=== PATIENT | female | born 1980 | race Caucasian/White ===

== ENCOUNTER → 2019-03-16 | Outpatient (CLI) | payer OTHER ==
[~2019-03-16] MED LIST: HYDACE5 PO; PROM25 PO
[2019-03-22 14:08] LABS: HPV 16 Negative (Negative); HPV 18 Negative (Negative); HPV OTHER HR TYPES Negative (Negative)
== END | disposition home or self-care (01) ==
LOC: LAB SHORT 15:56 → LAB 15:56
PROVIDERS: Obstetrics & Gynecology
DX: Z12.4 Encounter for screening for malignant neoplasm of cervix (principal)
CPT/HCPCS: 87624; G0123

== ENCOUNTER 2023-03-30 10:47 | Day surgery (SDC) | payer OTHER ==
[~2023-03-30] VITALS: Ht 170.2 cm; Wt 118.6 kg
[2023-03-30] MEDS ORDERED: METF500 (11:22)
[2023-03-30] MEDS ORDERED: LISI20 (11:22)
[2023-03-30] MEDS ORDERED: AMLO5 (11:22)
[2023-03-30] MEDS ORDERED: ALBU90OI (11:22)
[2023-03-30] MEDS ORDERED: MONT10T (11:23)
[2023-03-30] MEDS ORDERED: PANT20 (11:23)
[2023-03-30 13:17] VITALS: BP 108/67
== END 2023-03-30 13:12 | disposition home or self-care (01) ==
LOC: ORSCSDS 10:47
PROVIDERS: Internal Medicine Gastroenterology
PROC: 0DB68ZX Excision of Stomach, Via Natural or Artificial Opening Endoscopic, Diagnostic (ICD-10-PCS; principal; 2023-03-30 12:15)
PROC: 0DB58ZX Excision of Esophagus, Via Natural or Artificial Opening Endoscopic, Diagnostic (ICD-10-PCS; principal; 2023-03-30 12:15)
DX: R13.10 Dysphagia, unspecified (principal); B96.81 Helicobacter pylori [H. pylori] as the cause of diseases classified elsewhere; K21.9 Gastro-esophageal reflux disease without esophagitis; Z80.0 Family history of malignant neoplasm of digestive organs; K29.70 Gastritis, unspecified, without bleeding; K44.9 Diaphragmatic hernia without obstruction or gangrene; I10 Essential (primary) hypertension; E11.9 Type 2 diabetes mellitus without complications; F17.210 Nicotine dependence, cigarettes, uncomplicated; Z79.84 Long term (current) use of oral hypoglycemic drugs; Z79.899 Other long term (current) drug therapy
CPT/HCPCS: 82947; 88305; 88342; J2001; J2704; J3010; J7120

== ENCOUNTER → 2023-06-07 | Outpatient (CLI) | payer OTHER ==
[~2023-06-07] MED LIST changes: +ALBU90OI; +AMLO5; +LISI20; +METF500; +MONT10T; +PANT20
== END | disposition home or self-care (01) ==
LOC: LAB 08:15 → LAB SHORT 08:15
DX: A04.8 Other specified bacterial intestinal infections (principal)
CPT/HCPCS: 87338

== ENCOUNTER 2024-11-23 09:14 | Day surgery (SDC) | payer OTHER ==
[~2024-11-23] VITALS: Ht 170.2 cm; Wt 117.4 kg
[~2024-11-23 09:14] MED LIST changes: +Lactated Ringer's 1,000 ML IV ONE
[2024-11-23] MEDS ORDERED: STEGLATRO15 MG (09:35)
[2024-11-23] MEDS ORDERED: ALLEGRA ALLERG180 MG (09:36)
[2024-11-23] MEDS ORDERED: Lactated Ringer's 1,000 ML IV ONE (10:29)
[2024-11-23] MEDS ORDERED: Lidocaine HCl 4% 5 ML SDA ONE (10:30)
[2024-11-23] MEDS ORDERED: propofoL 50 ML IV ONE ×2 (10:33→10:58)
--- NOTE | 2024-11-23 11:17 | NUR ---
11/23/24 Silvia Avendaño FINGER PRINT WOULD NOT WORK FOR PYXIS ACCESS. THIS RN HAD TO PULL PROPOFOL FROM PYXIS IN ENDO ROOM 2 FOR THIS PT.
[2024-11-23 12:38] VITALS: BP 135/96
--- NOTE | 2024-11-23 12:46 | NUR ---
11/23/24 Oli6 Silvia Jurado PT BIT HER LIP DURNING THE PROCEDURE. PT STATES HER LIP IS A 2/10 PAIN IN STEP DOWN. PT BOTTOM LIP WAS MILDLY SWOLLEN. THIS RN GAVE PT AN ICE PACK TO PUT ON HER LIP.
== END 2024-11-23 12:24 | disposition home or self-care (01) ==
LOC: ORSCSDS 09:14
PROVIDERS: Internal Medicine Gastroenterology
PROC: 0DB58ZX Excision of Esophagus, Via Natural or Artificial Opening Endoscopic, Diagnostic (ICD-10-PCS; principal; 2024-11-23 10:30)
PROC: 0DBH8ZX Excision of Cecum, Via Natural or Artificial Opening Endoscopic, Diagnostic (ICD-10-PCS; principal; 2024-11-23 10:30)
PROC: 0D757ZZ Dilation of Esophagus, Via Natural or Artificial Opening (ICD-10-PCS; principal; 2024-11-23 10:30)
PROC: 0DBN8ZX Excision of Sigmoid Colon, Via Natural or Artificial Opening Endoscopic, Diagnostic (ICD-10-PCS; principal; 2024-11-23 10:30)
PROC: 0DBL8ZX Excision of Transverse Colon, Via Natural or Artificial Opening Endoscopic, Diagnostic (ICD-10-PCS; principal; 2024-11-23 10:30)
DX: Z12.11 Encounter for screening for malignant neoplasm of colon (principal); R13.10 Dysphagia, unspecified; D12.3 Benign neoplasm of transverse colon; D12.0 Benign neoplasm of cecum; D12.5 Benign neoplasm of sigmoid colon; K57.30 Diverticulosis of large intestine without perforation or abscess without bleeding; K64.4 Residual hemorrhoidal skin tags; E11.9 Type 2 diabetes mellitus without complications; I10 Essential (primary) hypertension; J45.909 Unspecified asthma, uncomplicated; F17.210 Nicotine dependence, cigarettes, uncomplicated; E66.01 Morbid (severe) obesity due to excess calories; Z68.41 Body mass index [BMI] 40.0-44.9, adult; Z79.899 Other long term (current) drug therapy; Z79.84 Long term (current) use of oral hypoglycemic drugs
CPT/HCPCS: 82947; 88305; J2003; J2704; J7120

== ENCOUNTER → 2025-09-30 | Outpatient (CLI) | payer OTHER ==
[~2025-09-30] MED LIST changes: +ALLEGRA ALLERG180 MG; -Lactated Ringer's 1,000 ML IV ONE; +STEGLATRO15 MG
[2025-10-04 20:32] LABS: OVA AND PARASITE,FECAL INTERP Negative (Negative)
== END | disposition home or self-care (01) ==
LOC: LAB 14:27 → LAB SHORT 14:27
DX: R11.10 Vomiting, unspecified (principal)
CPT/HCPCS: 87177; 87209

== ENCOUNTER → 2025-10-01 | Outpatient (CLI) | payer OTHER ==
[2025-10-04 22:47] LABS: OVA AND PARASITE,FECAL INTERP Negative (Negative)
== END | disposition home or self-care (01) ==
LOC: LAB 10:41 → LAB SHORT 10:41 → LAB FUT 09-26 14:30
DX: R11.10 Vomiting, unspecified (principal)
CPT/HCPCS: 87177; 87209

== ENCOUNTER → 2025-10-02 | Outpatient (CLI) | payer OTHER ==
[2025-10-02 14:13] LABS: Campylobacter Sp Not Detected (NOT DETECT); E. Coli O157 Not Detected (NOT DETECT); Enteroaggregative E. coli-EAEC Not Detected (NOT DETECT); Enteropathogenic E. coli-EPEC Not Detected (NOT DETECT); Enterotoxigenic E. coli-ETEC Not Detected (NOT DETECT); Salmonella Sp Not Detected (NOT DETECT); Shiga Toxin-prod E. coli-STEC Not Detected (NOT DETECT); Shigella/Enteroin E. coli-EIEC Not Detected (NOT DETECT); Vibrio Sp Not Detected (NOT DETECT)
[2025-10-07 10:38] LABS: OVA AND PARASITE,FECAL INTERP Negative (Negative)
== END | disposition home or self-care (01) ==
LOC: LAB SHORT 08:02 → LAB 08:02 → LAB FUT 09-26 11:55
DX: R11.10 Vomiting, unspecified (principal)
CPT/HCPCS: 87177; 87209; 87507